=== PATIENT | male | born 1960 | race Caucasian/White ===

== ENCOUNTER → 2021-12-31 | Outpatient (CLI) | payer MEDICARE, MEDICAID ==
[~2021-12-31] MED LIST: LISI10TA26 PO; METF-416 PO; PIOG30TA10 PO
== END | disposition home or self-care (01) ==
LOC: LAB 10:18
PROVIDERS: ATTEND Specialist
DX: Z20.822 Contact with and (suspected) exposure to COVID-19 (principal)
CPT/HCPCS: 87426

== ENCOUNTER → 2022-01-01 | Day surgery (SDC) | payer MEDICARE, MEDICAID ==
[~2022-01-01] VITALS: Ht 160 cm; Wt 72.6 kg
[~2022-01-01] MED LIST changes: +ACETAMINOPHEN 500MG TABLET ONE; +BUPIVACAINE HCL/PF 0.5% (5MG/ML) 30ML ONE; +CLINDAMYCIN 900 MG PREMIX 50 ML IV ONE; +EPHEDRINE SULFATE 50MG/ML VIAL ONE; +FENTANYL CITRATE/PF 50MCG/ML 2ML VIAL IV PRN; +FENTANYL CITRATE/PF 50MCG/ML 2ML VIAL ONE; +GLYCOPYRROLATE 0.2 MG/ML 2ML VIAL ONE; +HYDROMORPHONE HCL/PF 2MG/ML CPJ IV PRN; +KETOROLAC 30MG/ML VIAL ONE; +LIDOCAINE HCL 1% 20ML VIAL (Pyxis) INJ ONE; +METOCLOPRAMIDE HCL 10MG/2ML VIAL ONE; +MIDAZOLAM HCL 2 MG/2 ML VIAL ONE; +NEOSTIGMINE METHYLSULFATE 1MG/ML 10 ML VIAL ONE; +ONDANSETRON HCL 4MG/2ML INJ ONE; +POLYMYXIN B SULFATE 500000 UNITS/VIAL ONE; +PROPOFOL 10MG/ML 100ML 100 ML IV ONE; +PROPOFOL 200MG/20ML VIAL IV ONE; +SKIN ADHESIVE 0.7 GM EA TOP ONE; +SODIUM CHLORIDE 0.9% 1,000 ML IV SCH; +SODIUM CHLORIDE 0.9% 10ML VIAL ONE; +SUCCINYLCHOLINE CHLORIDE 200MG/10ML IV ONE; +VECURONIUM BROMIDE 10 MG/VIAL IV ONE
[2022-01-01 12:00] VITALS: BP 127/70
== END | disposition home or self-care (01) ==
LOC: OR 05:48
PROVIDERS: ATTEND Specialist
DX: K40.20 Bilateral inguinal hernia, without obstruction or gangrene, not specified as recurrent (principal); I10 Essential (primary) hypertension; E11.9 Type 2 diabetes mellitus without complications; N40.0 Benign prostatic hyperplasia without lower urinary tract symptoms; Z79.84 Long term (current) use of oral hypoglycemic drugs; Z79.899 Other long term (current) drug therapy; Z98.890 Other specified postprocedural states; Z88.0 Allergy status to penicillin
CPT/HCPCS: 49505; 82962; 88304; C1781; J0330; J1885; J2250; J2405; J2704; J2710; J2765; J3010; J3490

== ENCOUNTER 2022-01-04 21:05 | Emergency (ER) | payer MEDICARE, MEDICAID ==
[~2022-01-04] VITALS: Ht 160 cm; Wt 73.0 kg
[~2022-01-04 21:05] MED LIST changes: -ACETAMINOPHEN 500MG TABLET ONE; -BUPIVACAINE HCL/PF 0.5% (5MG/ML) 30ML ONE; -CLINDAMYCIN 900 MG PREMIX 50 ML IV ONE; -EPHEDRINE SULFATE 50MG/ML VIAL ONE; -FENTANYL CITRATE/PF 50MCG/ML 2ML VIAL IV PRN; -FENTANYL CITRATE/PF 50MCG/ML 2ML VIAL ONE; -GLYCOPYRROLATE 0.2 MG/ML 2ML VIAL ONE; -HYDROMORPHONE HCL/PF 2MG/ML CPJ IV PRN; -KETOROLAC 30MG/ML VIAL ONE; -LIDOCAINE HCL 1% 20ML VIAL (Pyxis) INJ ONE; -METOCLOPRAMIDE HCL 10MG/2ML VIAL ONE; -MIDAZOLAM HCL 2 MG/2 ML VIAL ONE; -NEOSTIGMINE METHYLSULFATE 1MG/ML 10 ML VIAL ONE; -ONDANSETRON HCL 4MG/2ML INJ ONE; -POLYMYXIN B SULFATE 500000 UNITS/VIAL ONE; -PROPOFOL 10MG/ML 100ML 100 ML IV ONE; -PROPOFOL 200MG/20ML VIAL IV ONE; -SKIN ADHESIVE 0.7 GM EA TOP ONE; -SODIUM CHLORIDE 0.9% 1,000 ML IV SCH; -SODIUM CHLORIDE 0.9% 10ML VIAL ONE; -SUCCINYLCHOLINE CHLORIDE 200MG/10ML IV ONE; -VECURONIUM BROMIDE 10 MG/VIAL IV ONE
[2022-01-05] MEDS ORDERED: HYDROCODONE/ACETAMINOPHEN 10/325MG TABLET PO ONE (01:30)
[2022-01-05 01:32] VITALS: BP 143/71
== END 2022-01-05 02:15 | disposition home or self-care (01) ==
LOC: ER 21:05
DX: Z46.6 Encounter for fitting and adjustment of urinary device (principal); Z88.0 Allergy status to penicillin; I10 Essential (primary) hypertension; E11.9 Type 2 diabetes mellitus without complications; Z98.890 Other specified postprocedural states
CPT/HCPCS: 99283